=== PATIENT | male | born 2005 | race Two or more races ===

== ENCOUNTER 2025-08-12 18:40 | Emergency (ER) | payer OTHER ==
[~2025-08-12] VITALS: Ht 167.6 cm; Wt 73.5 kg
[2025-08-12] MEDS ORDERED: KETOROLAC TROMETHAMINE 30 MG VIAL IM ONE (19:45)
[2025-08-12] MEDS ORDERED: KETOROLAC TROMETHAMINE 30 MG VIAL ONE (20:04)
[2025-08-12] MEDS ORDERED: NORFLEX100MG PO (20:13)
== END 2025-08-12 20:33 | disposition home or self-care (01) ==
LOC: ER 18:40 → EMR PED 18:55 → ER 18:55
DX: S60.012A Contusion of left thumb without damage to nail, initial encounter (principal); X58.XXXA Exposure to other specified factors, initial encounter; Y93.B9 Activity, other involving muscle strengthening exercises; Y92.89 Other specified places as the place of occurrence of the external cause; Y99.9 Unspecified external cause status